=== PATIENT | male | born 1975 | race Caucasian/White ===

== ENCOUNTER 2020-05-13 19:06 | Emergency (ER) | payer OTHER, SELFPAY ==
[2020-05-13 19:23] VITALS: BP 142/79; PULSE 78; RESP 16; TEMP 36.8; O2SAT 97
[2020-05-13 19:26] VITALS: BP 142/79; PULSE 78; RESP 16; TEMP 36.8; O2SAT 97; BMI 26.6
--- NOTE | 2020-05-13 19:36 | ED_ITS ---
HPI - Back Pain/Injury General Chief Complaint: Back Pain/Injury Stated Complaint: Back pain Time Seen by Provider: 05/13/20 19:36 Source: patient Mode of arrival: ambulatory Limitations: no limitations History of Present Illness HPI Narrative: Acute on chronic lower back pain for the past couple days. States history of back pain has been here for this before. States feels like he pulled a muscle while getting up. Now her sats down on his buttocks. Denies any other fall or injury. No headache. No fever. No GI symptoms. MD elicited complaint: back pain Onset (ago): day(s) Timing: constant Severity: moderate Similar Symptoms Previously: Yes Quality: aching Treatments prior to arrival: cold therapy and heat therapy Related Data Previous Rx's Medication Instructions Recorded cyclobenzaprine 5 mg PO BEDTIME #20 tab 05/13/20 ibuprofen 800 mg PO Q8H PRN #30 tab 05/13/20 lidocaine 1 patch TOPICAL Q24H PRN #10 ea 05/13/20 Allergies Allergy/AdvReac Type Severity Reaction Status Date / Time No Known Allergies Allergy Unverified 04/17/20 15:41 Review of Systems Review of Systems: Constitutional: No Weight loss, No Fever, No Chills, No Night Sweats, No Fatigue, No Malaise ENT/Mouth: No Hearing loss, No Ear Pain, No Nasal Congestion, No Sinus Pain, No Hoarseness, No sore throat, No Rhinorrhea, No Swallowing Difficulty Eyes: No Eye Pain, No Swelling, No Redness, No Foreign Body, No Discharge, No Vision Changes Cardiovascular: No Chest Pain, No SOB, No Dyspnea on Exertion, No Orthopnea, No Edema, No Palpitations Respiratory: No Cough, No Sputum, No Wheezing, No Smoke Exposure, No Dyspnea Gastrointestinal: No Nausea, No Vomiting, No Diarrhea, No Constipation, No abdominal Pain, No Hematochezia, No Melena Genitourinary: no irregular bleeding, No Dysuria, No Urinary Frequency, No Hematuria, No Urinary Incontinence, No Urgency, No Flank Pain, No Urinary Flow Changes, No Hesitancy Musculoskeletal: No joint pain, No Myalgias, No Joint Swelling + lower back pain on left side Skin: No Skin Lesions, No rash Neuro: No Weakness, No Numbness, No Paresthesias, No Loss of Consciousness, No Dizziness, No Headache Psych: No Anxiety/Panic, No Depression, No SI/HI/AH/VH, No Social Issues, Heme/Lymph: No Bruising, No Bleeding,No Lymphadenopathy Endocrine: No Polyuria, No Polydipsia, No Temperature Intolerance Yes all other systems are reviewed and are negative FOR[facility]LY [facility], [facility] Past Medical History Attestation statement: The following information was validated with the patient. Social History Social History Alcohol intake: never Smoking Status: Light tobacco smoker Use of substances other than those prescribed or required for medical reasons: No Advance Directives: No Physical Exam 2 Vital Signs: Vital Signs: Vital Signs Temp Pulse Resp BP Pulse Ox 05/13/20 19:26 98.2 F 78 16 142/79 H 97 05/13/20 19:23 98.2 F 78 16 142/79 H 97 Body Mass Index 26.6 Const: General: cooperative and healthy appearing; No acute distress or intoxicated appearing Nutritional Appearance: average body habitus Orientation/consciousness: patient oriented x3 HENMT: Head: Yes normal to inspection Ears: hearing grossly normal bilaterally Eyes: General: appearance normal, both eyes and all related structures Visual Miles: normal visual miles by confrontation Neck: Neck: Yes normal visual inspection and No tender Thyroid: Thyroid normal Chest: Chest palpation & inspection: normal inspection of the chest Resp: Effort & Inspection: normal respiratory effort Cardio: Jugular venous distension: no JVD GI: Inspection: Yes normal to inspection Percussion: Yes normal to percussion Auscultation: normal bowel sounds Back/Spine/Pelvis: Other: Negative leg lift. Deep tendon reflexes within normal limits. Back: back tenderness (Bilateral lumbar paraspinal muscle tenderness. No midline, step-off. ) Skin: General skin exam: no rashes or lesions noted Neuro: General: patient oriented x3 Extrem: General: Yes normal to inspection Course Course Course Narrative: Acute on chronic low back pain consistent with a strain type injury. Imaging from prior visits reviewed. No need for further imaging at this time. No red flags. Feels better after Toradol and Flexeril/lidocaine patch. Will discharge home similar regimen. Will follow up. Out of bed ambulatory status with gait. Thankful for his care here. Discharge Plan Discharge Clinical Impression: Strain of lumbar region Patient Disposition: Home, Self-Care Prescriptions: New lidocaine 4 % adhesive patch,medicated 1 patch topical Q24H PRN (Reason: pain) Qty: 10 RF: 0 cyclobenzaprine 5 mg tablet 5 mg PO BEDTIME Qty: 20 RF: 0 ibuprofen 800 mg tablet 800 mg PO Q8H PRN (Reason: Pain) Qty: 30 RF: 0 Referrals: Physician,Unknown [Primary Care Provider] - 1 week (Your primary care doctor)
[2020-05-13] MEDS: Ketorolac Tromethamine 60 MG/2 ML VIAL IM (20:19)
[2020-05-13] MEDS: Lidocaine 4 % Patch ADH..PATCH 1 PATCH TRANSDERMA (20:19)
[2020-05-13] MEDS: Cyclobenzaprine HCl 5 MG TABLET PO (20:19)
== END 2020-05-13 20:54 | disposition home or self-care (01) ==
PROVIDERS: Emergency Provider Internal Medicine
DX: S39.012A Strain of muscle, fascia and tendon of lower back, initial encounter (principal); X50.1XXA Overexertion from prolonged static or awkward postures, initial encounter; F17.219 Nicotine dependence, cigarettes, with unspecified nicotine-induced disorders; Y93.89 Activity, other specified; Y92.019 Unspecified place in single-family (private) house as the place of occurrence of the external cause; Y99.9 Unspecified external cause status
CPT/HCPCS: 96372; 99284; J1885